=== PATIENT | female | born 1980 | race Two or more races ===

== ENCOUNTER → 2024-05-30 | Outpatient (CLI) | payer BC, SELFPAY ==
--- NOTE | 2024-05-30 15:00 | XR_ITS ---
Examination: Abdomen sonogram, complete Date and time of exam: May 30, 2024 1451 hours INDICATIONS: Right lower abdominal pain beginning 2 months ago. Technique: Multiple real-time grayscale transabdominal sonographic images of the abdomen have been obtained. Findings: Negative for cholelithiasis, negative for cholecystitis Common bile duct enlarged 0.9 cm Pancreatic head 2.5 cm Aorta not enlarged Liver 18.8 cm smooth contour fatty infiltration Normal hepatopedal portal venous flow Patent IVC Right kidney 11.6 x 5.6 x 6.2 cm cortex 1.2 cm Left kidney 11.2 x 5.1 x 6.9 cm cortex 1.4 cm Mild renal parenchymal scar formation Spleen 10.8 cm IMPRESSION: Abnormally enlarged common bile duct 0.9 cm, consider MRCP follow-up to exclude common bile duct stones and/or stricture
--- NOTE | 2024-05-30 15:30 | XR_ITS ---
Examination: Pelvic ultrasound, transabdominal, complete Technique: Transabdominal ultrasound of the pelvis performed using grayscale imaging Date and time of exam: May 30, 2024 1444 hours INDICATIONS: Right lower abdominal pain beginning 2 years ago FINDINGS: Absent uterus Absent ovaries No free fluid in the pelvis No pelvic mass IMPRESSION: No free fluid in the pelvis No pelvic mass
== END | disposition home or self-care (01) ==
PROVIDERS: PCP Internal Medicine; Referring Provider Internal Medicine; Visit Provider Internal Medicine
DX: K83.8 Other specified diseases of biliary tract (principal)
CPT/HCPCS: 76700; 76856

== ENCOUNTER → 2024-07-12 | Outpatient (CLI) | payer BC, SELFPAY ==
[2024-07-12 09:47] LABS: Glucose Estimated Average 126 mg/dL (80-131)
== END | disposition home or self-care (01) ==
LOC: COPL 08:25
PROVIDERS: PCP Internal Medicine; Referring Provider Internal Medicine; Visit Provider Internal Medicine
DX: E11.65 Type 2 diabetes mellitus with hyperglycemia (principal)
CPT/HCPCS: 36415; 83036

== ENCOUNTER → 2024-07-16 | Outpatient (CLI) | payer BC, SELFPAY ==
--- NOTE | 2024-07-16 09:20 | XR_ITS ---
MRI abdomen, without contrast. MRCP Date and time of exam: July 16, 2024 0924 hours INDICATIONS: Intermittent right upper abdominal pain one year, enlarged common bile duct on abdomen sonogram May 30, 2024 Technique: Multiple axial and coronal images of the abdomen have been obtained with the Siemens 1.5T MRI scanner. Images obtained included T1 weighted transverse images, T2-weighted transverse images, T2-weighted transverse images fat-suppressed, T2 weighted haste fat suppressed transverse images, T1 weighted images, in and out of phase images, T2-weighted coronal images, breath hold, T2 weighted haze coronal images as well as T2 weighted coronal thick slab images, MRCP. Findings: Hepatomegaly 19 cm No gallstones Gallbladder wall is not thickened Common hepatic duct 7 mm, no common hepatic or common bile duct stones No pancreatic mass or peripancreatic edema Spleen is not enlarged No hydronephrosis No ascites IMPRESSION: Hepatomegaly, 19 cm Normal gallbladder No common hepatic or common bile duct stones, negative for common bile duct stricture
== END | disposition home or self-care (01) ==
LOC: SMRI 08:57
PROVIDERS: PCP Internal Medicine; Referring Provider Internal Medicine; Visit Provider Internal Medicine
DX: R16.0 Hepatomegaly, not elsewhere classified (principal)
CPT/HCPCS: S8037; 74181

== ENCOUNTER → 2024-07-30 | Outpatient (CLI) | payer BC, SELFPAY ==
--- NOTE | 2024-07-30 10:10 | XR_ITS ---
Examination: PA lateral chest 2 views TECHNIQUE: Upright PA lateral chest 2 views Exam date and time: July 30, 2024 at 1053 hours INDICATIONS: Coughing 2 weeks, history mass in the scrotal region removed 2019 FINDINGS: Pulmonary nodule left upper lobe 14 mm compared to [address] chest April 06, 2021 No mediastinal lymphadenopathy Sternum appears intact No lobar pneumonia IMPRESSION: Stable pulmonary nodule left upper lobe
[2024-07-30 10:45] LABS: Basophils % (Auto) 0 % (0-2.5); Eosinophils # (Auto) 0.1 Thou/mm3 (0.0-0.5); Eosinophils % (Auto) 2 % (0-10); Hematocrit 41.1 % (36.0-46.0); Hemoglobin 14.3 g/dL (12.0-16.0); Immature Granulocytes % (Auto) 0 % (0-0); Immature Granulocytes Auto 0.01 Thou/mm3 (0.00-0.00); Lymphocytes # (Auto) 1.6 Thou/mm3 (1.0-4.8); Lymphocytes % (Auto) 36 % (10-50); Mean Corpuscular HGB Conc 34.8 g/dl (31.0-37.0); Mean Corpuscular Hemoglobin 30.2 pg (25.0-35.0); Mean Corpuscular Volume 87 fL (80-100); Monocytes # (Auto) 0.3 Thou/mm3 (0.0-0.8); Monocytes % (Auto) 6 % (0-12); Neutrophils # (Auto) 2.5 Thou/mm3 (1.8-7.7); Neutrophils % (Auto) 56 % (37-80); Nucleated Red Blood Cell % 0 /100 WBC (0); Platelet Count 224 Thou/mm3 (140-440); RDW Standard Deviation 39.8 fL (36.4-46.3); Red Blood Count 4.74 Miln/mm3 (4.00-5.20); White Blood Count 4.4 Thou/mm3 (3.6-11.0)
[2024-07-30 11:38] LABS: Sed Rate (ESR) 28 mm/hr (0-20)
[2024-07-30 14:49] LABS: Cocci Serology, IgM Positive (Negative)
[2024-07-30 14:50] LABS: Cocid Sro, CF/ID (UCD) NO CHG* See Sep Rpt
== END | disposition home or self-care (01) ==
LOC: COPL 09:40
PROVIDERS: PCP Internal Medicine; Referring Provider Internal Medicine; Visit Provider Radiology Diagnostic Radiology
DX: R91.1 Solitary pulmonary nodule (principal); R05.9 Cough, unspecified
CPT/HCPCS: 36415; 71046; 85025; 85652; 86635

== ENCOUNTER 2024-12-06 17:37 | Emergency (ER) | payer BC, SELFPAY ==
[2024-12-06 17:37] VITALS: BMI 35.7
--- NOTE | 2024-12-06 17:42 | EKG_ITS ---
[facility] Test Date: 2024-12-06 Pat Name: RED PRATT Department: Room: - Gender: Female [employer]: : 1980 Requested By: ED Temporary Provider Order Number: [id number] Reading MD: ED Temporary Provider Measurements Intervals [place] Rate: 90 P: 37 WV: 137 QRS: 52 QRSD: 79 T: 24 QT: 341 QTc: 419 Interpretive Statements SINUS RHYTHM NONSPECIFIC T-WAVE ABNORMALITY Compared to ECG 11/29/2019 10:52:51 T-wave abnormality now present /store/S0/[id number].pdf
--- NOTE | 2024-12-06 17:47 | PD.EDRME ---
Rapid Medical Screening Exam RME Arrival date/time: 12/06/24 17:37 44-year-old female presents with concerns for left-sided chest pressure patient for symptoms started yesterday. Patient reports history of mediastinal mass with excision as well as hysterectomy Chief Complaint: Chest Pain
--- NOTE | 2024-12-06 17:48 | XR_ITS ---
Examination: PA lateral chest 2 views TECHNIQUE: Upright PA lateral chest 2 views COMPARISON: July 30, 2024, CT chest April 06, 2021 INDICATIONS: Left-sided chest pain today, diagnosis malignant neoplasm cervix FINDINGS: Normal heart size No pneumonia or pulmonary edema 12 mm pulmonary nodule left upper lobe compared to [address] chest April 06, 2021 No unremarkable pneumonia or pulmonary edema The osseous structures are intact IMPRESSION: No interval pneumonia or pulmonary edema
[2024-12-06 17:50] VITALS: BP 120/83; PULSE 86; RESP 16; TEMP 37; O2SAT 97
[2024-12-06 19:09] LABS: Basophils # (Auto) 0.0 Thou/mm3 (0.0-0.2); Basophils % (Auto) 0 % (0-2.5); Eosinophils # (Auto) 0.1 Thou/mm3 (0.0-0.5); Eosinophils % (Auto) 2 % (0-10); Hematocrit 38.7 % (36.0-46.0); Hemoglobin 13.3 g/dL (12.0-16.0); Immature Granulocytes Auto 0.01 Thou/mm3 (0.00-0.00); Lymphocytes # (Auto) 2.0 Thou/mm3 (1.0-4.8); Lymphocytes % (Auto) 28 % (10-50); Mean Corpuscular HGB Conc 34.4 g/dl (31.0-37.0); Mean Corpuscular Hemoglobin 30.1 pg (25.0-35.0); Mean Corpuscular Volume 88 fL (80-100); Monocytes # (Auto) 0.5 Thou/mm3 (0.0-0.8); Monocytes % (Auto) 7 % (0-12); Neutrophils # (Auto) 4.3 Thou/mm3 (1.8-7.7); Neutrophils % (Auto) 62 % (37-80); Nucleated Red Blood Cell # 0.00 Thou/mm3 (0.00-0.00); Nucleated Red Blood Cell % 0 /100 WBC (0); Platelet Count 213 Thou/mm3 (140-440); RDW Standard Deviation 39.8 fL (36.4-46.3); Red Blood Count 4.42 Miln/mm3 (4.00-5.20); White Blood Count 7.0 Thou/mm3 (3.6-11.0)
[2024-12-06 19:27] LABS: INR 1.0 (0.9-1.3); Partial Thromboplastin Time 28.2 Seconds (22.0-36.0); Prothrombin Time 10.5 Seconds (9.0-12.2)
[2024-12-06 19:28] LABS: B-Type Natriuretic Peptide < 20 pg/mL (0-100)
[2024-12-06 19:29] LABS: Alanine Aminotransferase 23 U/L (10-49); Albumin, Serum 4.5 gm/dL (3.5-5.0); Albumin/Globulin Ratio 2.1 (1.2-2.2); Alkaline Phosphatase 67 U/L (46-116); Anion Gap 10 (7-16); Aspartate Amino Transferase 21 U/L (0-34); BUN/Creatinine Ratio 11 Ratio (12-20); Bilirubin,Total 0.4 mg/dL (0.3-1.2); Blood Urea Nitrogen 9 mg/dL (9-23); Calcium 9.9 mg/dL (8.3-10.6); Calcium (Corrected) 9.9 mg/dL (8.5-10.1); Carbon Dioxide 26.0 mMol/L (20.0-31.0); Chloride 103 mMol/L (98-107); Creatinine (Component) 0.8 mg/dL (0.6-1.3); Estimated Creatinine Clearance 104.8 mL/min (>60); Globulin 2.1 gm/dL (2.3-3.5); Glucose 114 mg/dL (74-106); Magnesium 1.4 mg/dL (1.6-2.6); Osmolality,Calculated 277 (275-295); Potassium 3.8 mMol/L (3.4-5.1); Sodium 139 mMol/L (136-145); Total Protein 6.6 gm/dL (5.7-8.2); Troponin I < 0.002 ng/mL (0.0-0.045); eGFR > 60 See Note
--- NOTE | 2024-12-06 23:38 | PD.EDCHEST ---
ED Chest Pain RME/HPI General Chief Complaint: Chest Pain Stated Complaint: CHEST PAIN LEFT SIDE Time Seen by Provider: 12/06/24 19:18 Arrival date/time: 12/06/24 17:37 RME / HPI RME / HPI narrative: 12/06/24 17:37 44-year-old female presents with concerns for left-sided chest pressure patient for symptoms started yesterday. Patient reports history of mediastinal mass with excision as well as hysterectomy See MDM for Dr. Brower's HPI Documentation. Related Data Home Medications ?Medication ?Instructions ?Recorded ?Confirmed buspirone 15 mg tablet 15 mg PO TID 12/01/19 12/01/19 estradiol 0.075 mg/24 hr weekly 0.075 mg topical QWEEK 12/01/19 12/01/19 transdermal patch gabapentin 100 mg capsule 100 mg PO QDAY 12/01/19 12/01/19 Previous Rx's ?Medication ?Instructions ?Recorded dicyclomine 20 mg tablet 20 mg PO BID PRN abdominal pain 12/10/22 #20 tabs pantoprazole 40 mg tablet,delayed 40 mg PO QDAY #14 tabs 12/10/22 release (Protonix) magnesium oxide 400 mg PO BID #60 tabs 12/06/24 Allergies Allergy/AdvReac Type Severity Reaction Status Date / Time No Known Allergies Allergy Verified 12/06/24 17:41 Review of Systems Review of Systems Systems Reviewed: All systems reviewed, normal except as documented Past Medical History Past Medical History REPRODUCTIVE: Positive Previous Pregnancies HEMATOLOGIC: Positive Anemia PSYCHO/SOCIAL: Positive Anxiety OTHER HISTORY: Positive Chicken Pox, Cancer and Cervical Cancer Family History FAMILY HISTORY: Positive Family Cancer Surgical History SURGICAL: Positive Hysterectomy ED Exam Narrative Physical exam: See MDM for Dr. Brower's Physical Exam Documentation. Course Course Course Narrative: CXR was ordered for determining the etiology of shortness of breath. Quality Measures none Orders Category Date Time Status EKG (ED ONLY) *Do not use* NOW Care 12/06/24 17:42 Completed EKG (ED Only) Stat Exams 12/06/24 17:42 Draft XR chest 2V Stat Exams 12/06/24 17:48 Completed B-Type Natriuretic Peptide Stat Lab 12/06/24 18:45 Completed CBC Stat Lab 12/06/24 18:45 Completed Comprehensive Metabolic Panel Stat Lab 12/06/24 18:45 Completed Magnesium Stat Lab 12/06/24 18:45 Completed Partial Thromboplastin Time Stat Lab 12/06/24 18:45 Completed Prothrombin Time with INR Stat Lab 12/06/24 18:45 Completed Troponin I Stat Lab 12/06/24 18:45 Completed Magnesium Oxide [Mag-Ox 400] Med 12/06/24 23:30 Discontinued 800 mg PO X1 ONE Vital Signs Vital signs: Vital Signs Temperature 98.6 F 12/06/24 17:50 Pulse Rate 86 12/06/24 17:50 Respiratory Rate 16 12/06/24 17:50 Blood Pressure 120/83 12/06/24 17:50 Pulse Oximetry (%) 97 12/06/24 17:50 Oxygen Delivery Method Room Air 12/06/24 17:50 Chest Pain MDM Narrative MDM Narrative:: Scribe Attestation: I, Sofi Del Rosario, am scribing for and in the presence of Dr. Brower. This section includes all my notes and documentations, including HPI, PE, and ED course. Michele Brower MD HPI: 44 y/o female with Hx of Anxiety, Anemia, and Cervical CA presents with chest discomfort witb tingling sensation for several days. No other complaints. ROS: All negative except as documented in HPI. Physical Exam: General: Alert and oriented. No acute distress when remaining still. Eyes: Conjunctivae and lids clear. ENT: No nasal congestion. Neck: Supple. Heart: RRR. Lungs: No respiratory distress. Good air movement. No rhonchi, wheezing, rales. Skin: Warm and dry. Neuro: Alert and oriented X 3. I reviewed all diagnostic test results: My interpretation of the EKG is sinus rhythm with nonspecific ST-T changes. My interpretation of the chest x-ray is: NAD. Blood tests unremarkable except Mg 1.4. At this point, diagnoses include: Hypomagnesemia. Treatment here included: oral Mag-Ox 800 mg. Recommended outpatient care. Based on my best medical judgment, made decision no further evaluation or treatment indicated at this time. Patient understands and agrees to the discharge instructions customized and printed, see below. Discharge instructions from Dr. Brower: 1. After extensive evaluation, there is no life-threatening condition.? Such as heart attack or pneumothorax (collapsed lung). 2. Your symptoms may be due to very low magnesium level. Your organs, including your heart, need magnesium to work. 3. Take magnesium pills as prescribed. Increase food rich in magnesium. Such as green and leafy vegetables and peanuts and almonds and cashews. 4. See a private doctor on 12/10/2024 for recheck and further care. Ask to review all test results and official radiology reports, to make sure you receive all necessary follow-ups and monitoring, including repeat magnesium. To make sure there is no serious underlying heart condition, ask to help you get more tests for your heart that cannot be done here in the ER.? Such as Holter Monitor (cardiac monitoring at home from a day to even a month), heart stress test (on treadmill or with medication), echocardiogram (imaging of your heart structures), heart catherization (checking for blockages in your heart arteries), and a referral to see a Transformation Specialist. 5. Seek immediate medical care with worsening or with any concerns.?? Michele Brower MD Patient data External records reviewed:: [facility] previous records (Reviewed prior ED records from 12/10/22. Patient was seen for Abdominal pain.) Clinical information provided by:: patient Social determinants that could affect healthcare access:: none Patient has the following chronic illnesses:: Anxiety, Anemia How is presenting disease/condition affected by chronic disease/condition?: exacerbated by Evaluation data The following diagnostics were reviewed and interpreted by me:: lab results, radiology exam(s) and EKG tracing(s) Lab and/or radiology exams considered but not ordered:: None Interpretation Summary: I reviewed all diagnostic test results: My interpretation of the EKG is sinus rhythm with nonspecific ST-T changes. My interpretation of the chest x-ray is: NAD. Blood tests unremarkable except Mg 1.4. Medications / Prescriptions Medications or Prescriptions considered but not ordered:: None Medication administrations:: Medication Administration History Discontinued Medications Magnesium Oxide (Magnesium Oxide 400 Mg Tablet) 800 mg PO X1 ONE Stop: 12/06/24 23:31 Last Admin: 12/06/24 23:41 Dose: 800 mg Documented By: LISA Mag-Ox 800 mg Consultations Consultation(s) initiated? (list below): No Diagnosis Chest Pain Differential Diagnosis: stable angina, unstable angina pectoris, atypical chest pain, st elevation myocardial infarction, costochondritis, chest pain and biliary colic Most likely diagnosis given after review of the tests above:: Hypomagnesemia Admission Indicated Admission indicated?: not indicated Explain why admission is indicated or not indicated:: With no condition needing urgent intervention, admission was not indicated. Admission Request Was there a request for admission?: No Disposition Plan Disposition Plan: Discharge Discharge Attestation Discharge Attestation: The patient and all family members were given an opportunity to ask questions and understood the discharge instructions. Discharge instructions specifically effects, indications for sooner follow up or return to the emergency department, and the expected course of current diagnosis. Patient condition: Stable Discharge Plan Plan Patient Disposition: HOME (Self Care) Prescriptions/Referrals Prescriptions/Med Rec: New magnesium oxide 400 mg magnesium tablet 400 mg PO BID Qty: 60 0RF No Action estradiol 0.075 mg/24 hr patch weekly 0.075 mg TOPICAL QWEEK Patient Comments: APPLY ONE PATCH Q WEEK gabapentin 100 mg Capsule 100 mg PO QDAY buspirone 15 mg Tablet 15 mg PO TID dicyclomine 20 mg tablet 20 mg PO BID PRN (Reason: abdominal pain) Qty: 20 0RF pantoprazole [Protonix] 40 mg tablet,delayed release (DR/EC) 40 mg PO QDAY Qty: 14 0RF Referrals: Alana Leonard MD [Primary Care Provider] - In 1 week Problem List Clinical Impression: Hypomagnesemia Patient/Caregiver Discharge Instructions Discharge Activity: activity as tolerated Education Materials: Magnesium (Blood), ED Chest Pain, Uncertain Cause Additional Instructions: Discharge instructions from Dr. Brower: 1. After extensive evaluation, there is no life-threatening condition.? Such as heart attack or pneumothorax (collapsed lung). 2. Your symptoms may be due to very low magnesium level. Your organs, including your heart, need magnesium to work. 3. Take magnesium pills as prescribed. Increase food rich in magnesium. Such as green and leafy vegetables and peanuts and almonds and cashews. 4. See a private doctor on 12/10/2024 for recheck and further care. Ask to review all test results and official radiology reports, to make sure you receive all necessary follow-ups and monitoring, including repeat magnesium. To make sure there is no serious underlying heart condition, ask to help you get more tests for your heart that cannot be done here in the ER.? Such as Holter Monitor (cardiac monitoring at home from a day to even a month), heart stress test (on treadmill or with medication), echocardiogram (imaging of your heart structures), heart catherization (checking for blockages in your heart arteries), and a referral to see a Transformation Specialist. 5. Seek immediate medical care with worsening or with any concerns.?? Print Language: Portuguese Stand Alone Forms: [employer]ivia Award Info., Patient Portal Info Letter
[2024-12-06] MEDS: MAGNESIUM OXIDE 400 MG TABLET 800 MG PO (23:41)
[2024-12-06 23:43] VITALS: BP 125/67; PULSE 74; RESP 16; TEMP 36.7; O2SAT 98
== END 2024-12-06 23:44 | disposition home or self-care (01) ==
PROVIDERS: Nurse Practitioner Primary Care; Emergency Provider Emergency Medicine; PCP Internal Medicine
DX: E83.42 Hypomagnesemia (principal); R07.9 Chest pain, unspecified; R06.02 Shortness of breath; D64.9 Anemia, unspecified; F41.9 Anxiety disorder, unspecified; Z85.41 Personal history of malignant neoplasm of cervix uteri; Z90.710 Acquired absence of both cervix and uterus; Z79.899 Other long term (current) drug therapy
CPT/HCPCS: 36415; 71046; 80053; 83735; 83880; 84484; 85025; 85610; 85730; 93005; 99283; A9270